=== PATIENT | male | born 1955 | race Caucasian/White ===

== ENCOUNTER 2018-09-11 16:59 | Emergency (ER) | payer MEDICARE, MEDICAID ==
[~2018-09-11] VITALS: Ht 190.5 cm; Wt 116.5 kg
[~2018-09-11 16:59] MED LIST: CYCL-120 PO
[2018-09-11 17:00] VITALS: BP 194/96
== END 2018-09-11 17:46 | disposition left against medical advice (07) ==
LOC: ER 17:00
DX: I10 Essential (primary) hypertension (principal); Z98.890 Other specified postprocedural states; Z59.0 Homelessness; Z91.048 Other nonmedicinal substance allergy status; Z79.899 Other long term (current) drug therapy
CPT/HCPCS: 99281

== ENCOUNTER 2019-02-05 22:26 | Emergency (ER) | payer MEDICARE, MEDICAID ==
[~2019-02-05] VITALS: Ht 190.5 cm; Wt 112.6 kg
[2019-02-05 22:30] VITALS: BP 149/122
--- NOTE | 2019-02-05 22:48 | NUR ---
PT SITTING UP IN BED, DRINKING WATER. TOLERATING PO.
[2019-02-05 23:15] LABS: URINE AMPHETAMINE SCREEN POSITIVE (Neg); URINE BARBITUATE SCREEN NEGATIVE (Neg); URINE BENZODIAZEPINES SCREEN NEGATIVE (Neg); URINE CANNABINOID SCREEN NEGATIVE (Neg); URINE COCAINE SCREEN NEGATIVE (Neg); URINE METHADONE SCREEN NEGATIVE (Neg); URINE OPIATE SCREEN POSITIVE (Neg); URINE PHENCYCLIDINE SCREEN NEGATIVE (Neg)
[2019-02-05 23:46] LABS: BASOPHILS # (AUTO) 0.1 X10'3 (0-0.2); EOSINOPHILS # (AUTO) 0.1 X10'3 (0-0.9); EOSINOPHILS % (AUTO) 1.7 % (0-6); HEMOGLOBIN 15.1 g/dl (14.0-17.9); LYMPHOCYTES # (AUTO) 1.4 X10'3 (1.1-4.8); LYMPHOCYTES % (AUTO) 20.9 % (21-51); MEAN CORPUSCULAR HEMOGLOBIN 31.3 PG (27.0-31.0); MEAN CORPUSCULAR HGB CONC 34.4 g/dL (33.0-36.5); MEAN CORPUSCULAR VOLUME 91.2 FL (78-98); MEAN PLATELET VOLUME 9.2 FL (7.4-10.4); MONOCYTES # (AUTO) 0.5 X10'3 (0-0.9); MONOCYTES % (AUTO) 7.3 % (2-12); NEUTROPHILS # (AUTO) 4.7 X10'3 (1.8-7.7); NEUTROPHILS % (AUTO) 69.1 % (42-75); PLATELET COUNT 235 X10'3 (140-440); RED BLOOD COUNT 4.82 X10'6 (4.70-6.10); WHITE BLOOD COUNT 6.8 X10'3 (4.5-11.0)
[2019-02-05 23:57] LABS: ALANINE AMINOTRANSFERASE 30 U/L (12-78); ALBUMIN 4.1 G/DL (3.4-5.0); ALBUMIN/GLOBULIN RATIO 1.2 (1.1-1.5); ALKALINE PHOSPHATASE 73 IU/L (46-116); ANION GAP 7 (8-16); ASPARTATE AMINO TRANSFERASE 20 U/L (10-37); BILIRUBIN,TOTAL 0.5 MG/DL (0.1-1.0); BLOOD UREA NITROGEN 9 MG/DL (7-18); BUN/CREATININE RATIO 9.7 (5.4-32.0); CALCIUM 8.9 MG/DL (8.5-10.1); CHLORIDE 100 MMOL/L (99-107); CREATININE 0.93 MG/DL (0.60-1.10); GLUCOSE 102 MG/DL (70-104); POTASSIUM 3.7 MMOL/L (3.5-5.1); SODIUM 139 MMOL/L (135-145); TOTAL CARBON DIOXIDE 31.9 MMOL/L (24-32); TOTAL PROTEIN 7.4 G/DL (6.4-8.2); eGFR 83 ML/MIN
[2019-02-06 00:05] LABS: ETHANOL < 0.010 GM/DL (0.0-0.010)
== END 2019-02-06 00:49 | disposition home or self-care (01) ==
LOC: ER 22:28
DX: F15.10 Other stimulant abuse, uncomplicated (principal); F41.9 Anxiety disorder, unspecified; I10 Essential (primary) hypertension; G89.29 Other chronic pain; Z59.0 Homelessness
CPT/HCPCS: 36415; 71045; 80053; 80305; 80320; 83880; 84484; 85025; 93005; 99284

== ENCOUNTER 2019-06-15 11:59 | Emergency (ER) | payer MEDICARE, MEDICAID ==
[~2019-06-15] VITALS: Ht 190.5 cm; Wt 108.2 kg
[2019-06-15 13:59] LABS: CLARITY,URINE CLEAR (Clear); COLOR,URINE STRAW (Yellow); GLUCOSE, URINE NEGATIVE (Neg); KETONES,URINE NEGATIVE (Neg); LEUKOCYTE ESTERASE ,URINE NEGATIVE (Neg); NITRITES, URINE NEGATIVE (Neg); OCCULT BLOOD,URINE MODERATE (Neg); PH,URINE 6.5 (4.8-8.0); PROTEIN,URINE NEGATIVE (Neg); UROBILINOGEN,URINE 0.2 E.U/dL (0.2-1.0)
[2019-06-15 14:01] LABS: UA COLLECTION TYPE STRAIGHT CATH
[2019-06-15 14:04] LABS: SQUAMOUS EPITHELIAL CELL,UR FEW /LPF (FEW)
[2019-06-15 14:05] LABS: BACTERIA,URINE FEW /HPF (Neg); RBC,URINE 0-2 /HPF (0-2); TRANSITIONAL EPI CELLS,URINE FEW /HPF; WBC,URINE 0-4 /HPF (0-4)
[2019-06-15 14:52] VITALS: BP 132/81
== END 2019-06-15 14:54 | disposition home or self-care (01) ==
LOC: ER 11:59
DX: T83.098A Other mechanical complication of other urinary catheter, initial encounter (principal); I10 Essential (primary) hypertension; G89.29 Other chronic pain; F15.90 Other stimulant use, unspecified, uncomplicated; Z91.013 Allergy to seafood; Z79.899 Other long term (current) drug therapy; Z59.0 Homelessness; Z98.890 Other specified postprocedural states; Y84.6 Urinary catheterization as the cause of abnormal reaction of the patient, or of later complication, without mention of misadventure at the time of the procedure; Y92.89 Other specified places as the place of occurrence of the external cause
CPT/HCPCS: 81001; 99284

== ENCOUNTER 2019-08-05 19:58 | Emergency (ER) | payer MEDICARE, MEDICAID ==
[~2019-08-05] VITALS: Ht 190.5 cm; Wt 109.1 kg
[2019-08-05] MEDS ORDERED: ibuprofen tablet 400 MG TABLET PO ONE (20:40)
[2019-08-05] MEDS ORDERED: IBUP-1984 PO (20:54)
[2019-08-05 21:03] VITALS: BP 151/85
== END 2019-08-05 21:06 | disposition home or self-care (01) ==
LOC: ER 19:59
DX: M25.511 Pain in right shoulder (principal); I10 Essential (primary) hypertension; G89.29 Other chronic pain; F15.90 Other stimulant use, unspecified, uncomplicated; Z59.0 Homelessness; Z98.890 Other specified postprocedural states
CPT/HCPCS: 73030; 99283

== ENCOUNTER 2019-10-01 10:02 | Emergency (ER) | payer MEDICARE, MEDICAID ==
[~2019-10-01] VITALS: Ht 190.5 cm; Wt 97.9 kg
[2019-10-01] MEDS ORDERED: ketorolac tromethamine 15mg/ml inj. IM ONE (10:55)
[2019-10-01] MEDS ORDERED: TRAM50TA2 PO (10:57)
[2019-10-01 11:11] VITALS: BP 159/109
== END 2019-10-01 11:20 | disposition home or self-care (01) ==
LOC: ER 10:03
DX: M54.5 Low back pain (principal); I10 Essential (primary) hypertension; G89.29 Other chronic pain; F15.90 Other stimulant use, unspecified, uncomplicated; Z59.0 Homelessness; Z98.890 Other specified postprocedural states
CPT/HCPCS: 96372; 99283; J1885

== ENCOUNTER 2019-12-20 14:51 | Emergency (ER) | payer MEDICARE, MEDICAID ==
[~2019-12-20] VITALS: Ht 190.5 cm; Wt 113.2 kg
[2019-12-20 14:54] VITALS: BP 146/105
== END 2019-12-20 15:24 | disposition home or self-care (01) ==
LOC: ER 14:52
DX: F15.10 Other stimulant abuse, uncomplicated (principal); R20.0 Anesthesia of skin; R20.2 Paresthesia of skin; I10 Essential (primary) hypertension; G89.29 Other chronic pain; Z98.890 Other specified postprocedural states; Z59.0 Homelessness; Z91.048 Other nonmedicinal substance allergy status; Z79.899 Other long term (current) drug therapy
CPT/HCPCS: 99283

== ENCOUNTER 2019-12-24 21:48 | Emergency (ER) | payer MEDICARE, MEDICAID ==
[~2019-12-24] VITALS: Ht 190.5 cm; Wt 113.0 kg
--- NOTE | 2019-12-24 22:15 | NUR ---
PATIENT SELF CATHETERIZED IN ORDER TO OBTAIN UA
[2019-12-24 22:51] LABS: CLARITY,URINE CLEAR (Clear); COLOR,URINE YELLOW (Yellow); GLUCOSE, URINE NEGATIVE (Neg); KETONES,URINE NEGATIVE (Neg); LEUKOCYTE ESTERASE ,URINE NEGATIVE (Neg); NITRITES, URINE NEGATIVE (Neg); OCCULT BLOOD,URINE NEGATIVE (Neg); PROTEIN,URINE NEGATIVE (Neg); UROBILINOGEN,URINE 0.2 E.U/dL (0.2-1.0)
[2019-12-24 22:58] LABS: UA COLLECTION TYPE STRAIGHT CATH
[2019-12-24 23:23] VITALS: BP 153/104
== END 2019-12-24 23:24 | disposition home or self-care (01) ==
LOC: ER 21:49
DX: R30.0 Dysuria (principal); I10 Essential (primary) hypertension; G89.29 Other chronic pain; F15.90 Other stimulant use, unspecified, uncomplicated; Z79.899 Other long term (current) drug therapy; R50.9 Fever, unspecified; M54.5 Low back pain; Z59.0 Homelessness; Z88.5 Allergy status to narcotic agent
CPT/HCPCS: 81003; 99283

== ENCOUNTER 2020-05-19 07:53 | Emergency (ER) | payer MEDICARE, MEDICAID ==
[~2020-05-19] VITALS: Ht 190.5 cm; Wt 120.5 kg
[2020-05-19 08:31] LABS: CLARITY,URINE CLEAR (Clear); COLOR,URINE YELLOW (Yellow); GLUCOSE, URINE NEGATIVE (Neg); KETONES,URINE NEGATIVE (Neg); LEUKOCYTE ESTERASE ,URINE NEGATIVE (Neg); NITRITES, URINE NEGATIVE (Neg); OCCULT BLOOD,URINE TRACE-INTACT (Neg); PH,URINE 5.5 (4.8-8.0); PROTEIN,URINE NEGATIVE (Neg); UROBILINOGEN,URINE 0.2 E.U/dL (0.2-1.0)
[2020-05-19 08:35] LABS: UA COLLECTION TYPE CLN CATCH MIDSTREAM
[2020-05-19 08:36] LABS: MUCUS STRANDS FEW /LPF (Neg); SQUAMOUS EPITHELIAL CELL,UR FEW /LPF (FEW)
[2020-05-19 08:37] LABS: BACTERIA,URINE FEW /HPF (Neg); HYALINE CASTS 0-3 /LPF (NEGATIVE); RBC,URINE 0-2 /HPF (0-2); WBC,URINE 0-4 /HPF (0-4)
[2020-05-19 08:43] LABS: URINE AMPHETAMINE SCREEN NEGATIVE (Neg); URINE BARBITUATE SCREEN NEGATIVE (Neg); URINE BENZODIAZEPINES SCREEN NEGATIVE (Neg); URINE CANNABINOID SCREEN NEGATIVE (Neg); URINE COCAINE SCREEN NEGATIVE (Neg); URINE METHADONE SCREEN NEGATIVE (Neg); URINE OPIATE SCREEN POSITIVE (Neg); URINE PHENCYCLIDINE SCREEN NEGATIVE (Neg)
[2020-05-19 08:59] VITALS: BP 167/94
== END 2020-05-19 09:02 | disposition home or self-care (01) ==
LOC: ER 07:53
DX: R50.9 Fever, unspecified (principal); I10 Essential (primary) hypertension; G89.29 Other chronic pain; Z98.890 Other specified postprocedural states; F15.90 Other stimulant use, unspecified, uncomplicated; Z59.0 Homelessness; Z88.8 Allergy status to other drugs, medicaments and biological substances; Z79.899 Other long term (current) drug therapy
CPT/HCPCS: 80305; 81001; 99283

== ENCOUNTER 2020-07-27 13:14 | Emergency (ER) | payer MEDICARE, MEDICAID ==
[~2020-07-27] VITALS: Ht 190.5 cm; Wt 122.7 kg
[2020-07-27 13:43] VITALS: BP 131/115
== END 2020-07-27 14:30 | disposition left against medical advice (07) ==
LOC: ER 13:14
DX: R05 Cough (principal); R51.9 Headache, unspecified; R53.83 Other fatigue; Z53.21 Procedure and treatment not carried out due to patient leaving prior to being seen by health care provider

== ENCOUNTER 2020-07-29 19:18 | Emergency (ER) | payer MEDICARE, MEDICAID ==
[~2020-07-29] VITALS: Ht 190.5 cm; Wt 120.5 kg
[2020-07-29] MEDS ORDERED: LIDOcaine 1% W/epiNEPHrine 1:200,000 10ml vial IJ ONE (19:35)
[2020-07-29] MEDS ORDERED: LIDOcaine 1% w/epiNEPHrine 1:200,000 30ml vial IJ ONE (19:45)
== END 2020-07-29 20:25 | disposition home or self-care (01) ==
LOC: ER 19:19
DX: S01.01XA Laceration without foreign body of scalp, initial encounter (principal); I10 Essential (primary) hypertension; G89.29 Other chronic pain; F15.90 Other stimulant use, unspecified, uncomplicated; Z59.0 Homelessness; Z98.890 Other specified postprocedural states; W22.03XA Walked into furniture, initial encounter; Y93.89 Activity, other specified; Y92.89 Other specified places as the place of occurrence of the external cause; Y99.9 Unspecified external cause status
CPT/HCPCS: 12001; 70450; 99284

== ENCOUNTER 2020-08-07 11:09 | Emergency (ER) | payer MEDICARE, MEDICAID ==
[~2020-08-07] VITALS: Ht 180.3 cm; Wt 100.0 kg
[2020-08-07 12:39] VITALS: BP 145/70
== END 2020-08-07 12:50 | disposition home or self-care (01) ==
LOC: ER 11:09
DX: S01.01XD Laceration without foreign body of scalp, subsequent encounter (principal); Z48.02 Encounter for removal of sutures; F15.90 Other stimulant use, unspecified, uncomplicated; Z91.041 Radiographic dye allergy status; Z91.013 Allergy to seafood; Z59.0 Homelessness; X58.XXXD Exposure to other specified factors, subsequent encounter
CPT/HCPCS: 99281

== ENCOUNTER 2020-08-24 17:39 | Emergency (ER) | payer MEDICARE, MEDICAID ==
[2020-08-25] MEDS ORDERED: NAPR-56 PO (10:42)
[2020-08-25] MEDS ORDERED: ACET-2119 PO (10:42)
[2020-08-25] MEDS ORDERED: CYCL-1 PO (10:42)
== END 2020-08-24 19:03 | disposition left against medical advice (07) ==
LOC: ER 17:39
DX: Z20.828 Contact with and (suspected) exposure to other viral communicable diseases (principal); Z53.21 Procedure and treatment not carried out due to patient leaving prior to being seen by health care provider

== ENCOUNTER 2020-08-25 07:52 | Emergency (ER) | payer MEDICARE, MEDICAID ==
[~2020-08-25] VITALS: Ht 190.5 cm; Wt 116.7 kg
[2020-08-25 09:03] VITALS: BP 173/112
--- NOTE | 2020-08-25 09:25 | NUR ---
PT SELF CATHS AND C/O POSSIBLE UTI SYMPTOMS WITH PRESSURE AND TIGHTENING. URINE SAMPLE COLLECTED AND SENT TO THE LAB
[2020-08-25 09:43] LABS: CLARITY,URINE CLEAR (Clear); COLOR,URINE STRAW (Yellow); GLUCOSE, URINE NEGATIVE (Neg); KETONES,URINE NEGATIVE (Neg); LEUKOCYTE ESTERASE ,URINE NEGATIVE (Neg); NITRITES, URINE NEGATIVE (Neg); OCCULT BLOOD,URINE NEGATIVE (Neg); PROTEIN,URINE NEGATIVE (Neg); UROBILINOGEN,URINE 0.2 E.U/dL (0.2-1.0)
[2020-08-25 09:44] LABS: UA COLLECTION TYPE STRAIGHT CATH
[2020-08-25] MEDS ORDERED: HYDROcodone/acetaminophen 10/325mg tab PO ONE (10:40)
[2020-08-25] MEDS ORDERED: naproxen 500mg tablet PO ONE (10:40)
[2020-08-25] MEDS ORDERED: cyclobenzaprine 10mg tablet PO ONE (10:40)
[2020-08-25] MEDS ORDERED: CYCL-1 PO (10:42)
[2020-08-25] MEDS ORDERED: ACET-2119 PO (10:42)
[2020-08-25] MEDS ORDERED: NAPR-56 PO (10:42)
== END 2020-08-25 10:59 | disposition home or self-care (01) ==
LOC: ER 07:53
DX: R51.9 Headache, unspecified (principal); M54.9 Dorsalgia, unspecified; G89.29 Other chronic pain; I10 Essential (primary) hypertension; F15.90 Other stimulant use, unspecified, uncomplicated; Z98.890 Other specified postprocedural states; Z59.0 Homelessness; Z91.041 Radiographic dye allergy status; Z91.013 Allergy to seafood; Z79.899 Other long term (current) drug therapy; Z86.19 Personal history of other infectious and parasitic diseases
CPT/HCPCS: 81003; 99283

== ENCOUNTER 2020-09-24 11:21 | Emergency (ER) | payer MEDICARE, MEDICAID ==
[~2020-09-24] VITALS: Ht 190.5 cm; Wt 120.5 kg
[~2020-09-24 11:21] MED LIST changes: +ACET-2119 PO; +CYCL-1 PO; +NAPR-56 PO
[2020-09-24 11:29] VITALS: BP 175/113
== END 2020-09-24 12:30 | disposition home or self-care (01) ==
LOC: ER 11:22
DX: Z04.1 Encounter for examination and observation following transport accident (principal); I10 Essential (primary) hypertension; G89.29 Other chronic pain; F15.90 Other stimulant use, unspecified, uncomplicated; Z98.890 Other specified postprocedural states; Z59.0 Homelessness; Z88.6 Allergy status to analgesic agent; Z79.899 Other long term (current) drug therapy; V89.2XXA Person injured in unspecified motor-vehicle accident, traffic, initial encounter; Y93.89 Activity, other specified; Y92.488 Other paved roadways as the place of occurrence of the external cause; Y99.8 Other external cause status
CPT/HCPCS: 99283

== ENCOUNTER 2020-11-17 16:54 | Emergency (ER) | payer MEDICARE, MEDICAID ==
[~2020-11-17] VITALS: Ht 190.5 cm; Wt 113.6 kg
[~2020-11-17 16:54] MED LIST changes: -ACET-2119 PO; -NAPR-56 PO
[2020-11-17 16:57] VITALS: BP 141/98
[2020-11-17] MEDS ORDERED: HYDR25CA PO (18:16)
== END 2020-11-17 18:28 | disposition home or self-care (01) ==
LOC: ER 16:55
DX: F41.9 Anxiety disorder, unspecified (principal); I10 Essential (primary) hypertension; G89.29 Other chronic pain; F15.90 Other stimulant use, unspecified, uncomplicated; Z91.041 Radiographic dye allergy status; Z91.013 Allergy to seafood; Z79.899 Other long term (current) drug therapy
CPT/HCPCS: 99283

== ENCOUNTER 2021-10-12 12:00 | Emergency (ER) | payer MEDICARE, MEDICAID ==
[~2021-10-12] VITALS: Ht 190.5 cm; Wt 113.0 kg
[~2021-10-12 12:00] MED LIST changes: +BACL10TA7 PO; -CYCL-1 PO; -CYCL-120 PO; +DIAZ-351 PO; +DIPH25TA62 PO; +FLO0.4C PO; +HYDR-3965 PO; +NAPR-996 PO; +RAMI10CA69 PO; +TEMA30CA PO
[2021-10-12 12:54] VITALS: BP 147/102
[2021-10-12] MEDS ORDERED: BENZ-38 PO (14:24)
== END 2021-10-12 14:40 | disposition home or self-care (01) ==
LOC: ER 12:01
DX: R05.9 Cough, unspecified (principal); R09.89 Other specified symptoms and signs involving the circulatory and respiratory systems; Z20.822 Contact with and (suspected) exposure to COVID-19; I10 Essential (primary) hypertension; G89.29 Other chronic pain; F15.90 Other stimulant use, unspecified, uncomplicated; Z98.890 Other specified postprocedural states; Z79.899 Other long term (current) drug therapy; Z88.6 Allergy status to analgesic agent
CPT/HCPCS: 71045; 87635; 99284; C9803

== ENCOUNTER 2022-05-25 08:05 | Emergency (ER) | payer MEDICARE, MEDICAID ==
[~2022-05-25] VITALS: Ht 190.5 cm; Wt 113.6 kg
[2022-05-25 08:42] LABS: CLARITY,URINE SLIGHTLY CLOUDY (Clear); COLOR,URINE YELLOW (Yellow); GLUCOSE, URINE NEGATIVE (Neg); KETONES,URINE NEGATIVE (Neg); LEUKOCYTE ESTERASE ,URINE MODERATE (Neg); NITRITES, URINE POSITIVE (Neg); OCCULT BLOOD,URINE TRACE-INTACT (Neg); PH,URINE 7.5 (4.8-8.0); PROTEIN,URINE NEGATIVE (Neg); UROBILINOGEN,URINE 0.2 E.U/dL (0.2-1.0)
[2022-05-25 08:45] LABS: UA COLLECTION TYPE STRAIGHT CATH
[2022-05-25 08:55] LABS: SQUAMOUS EPITHELIAL CELL,UR FEW /LPF (FEW)
[2022-05-25 08:57] LABS: BACTERIA,URINE 4+ /HPF (Neg); RBC,URINE 0-2 /HPF (0-2); WBC,URINE 30-50 /HPF (0-4)
[2022-05-25] MEDS ORDERED: CEPH-585 PO (09:24)
[2022-05-25] MEDS ORDERED: cephalexin 250mg capsule PO ONE (09:30)
[2022-05-25 09:59] VITALS: BP 149/105
--- NOTE | 2022-05-25 10:01 | NUR ---
Pt given and understands d/c istructions. Ambulatory with a limp.
== END 2022-05-25 10:04 | disposition home or self-care (01) ==
LOC: ER 08:05
DX: N39.0 Urinary tract infection, site not specified (principal); N31.9 Neuromuscular dysfunction of bladder, unspecified; I10 Essential (primary) hypertension; G89.29 Other chronic pain; F15.90 Other stimulant use, unspecified, uncomplicated; Z87.440 Personal history of urinary (tract) infections; Z98.890 Other specified postprocedural states; Z88.8 Allergy status to other drugs, medicaments and biological substances; Z79.2 Long term (current) use of antibiotics; Z79.899 Other long term (current) drug therapy
CPT/HCPCS: 81001; 87077; 87088; 87186; 99284

== ENCOUNTER 2022-07-12 17:07 | Emergency (ER) | payer MEDICARE, MEDICAID ==
[~2022-07-12] VITALS: Ht 190.5 cm; Wt 118.2 kg
[2022-07-12 17:24] VITALS: BP 158/112
[2022-07-12 17:51] LABS: BASOPHILS # (AUTO) 0.1 X10'3 (0-0.2); BASOPHILS % (AUTO) 1.2 % (0-1); EOSINOPHILS # (AUTO) 0.1 X10'3 (0-0.9); EOSINOPHILS % (AUTO) 1.3 % (0-6); HEMATOCRIT 44.1 % (42.0-52.0); HEMOGLOBIN 15.2 g/dl (14.0-17.9); LYMPHOCYTES # (AUTO) 1.8 X10'3 (1.1-4.8); MEAN CORPUSCULAR HEMOGLOBIN 30.2 PG (27.0-31.0); MEAN CORPUSCULAR HGB CONC 34.6 g/dL (33.0-36.5); MEAN CORPUSCULAR VOLUME 87.2 FL (78-98); MEAN PLATELET VOLUME 8.8 FL (7.4-10.4); MONOCYTES # (AUTO) 0.5 X10'3 (0-0.9); MONOCYTES % (AUTO) 5.7 % (2-12); NEUTROPHILS # (AUTO) 6.2 X10'3 (1.8-7.7); NEUTROPHILS % (AUTO) 70.8 % (42-75); PLATELET COUNT 240 X10'3 (140-440); RED BLOOD COUNT 5.05 X10'6 (4.70-6.10); RED CELL DISTRIBUTION WIDTH 13.3 % (11.5-14.5); WHITE BLOOD COUNT 8.7 X10'3 (4.5-11.0)
[2022-07-12 18:09] LABS: ALANINE AMINOTRANSFERASE 27 U/L (12-78); ALBUMIN 4.3 G/DL (3.4-5.0); ALBUMIN/GLOBULIN RATIO 1.2 (1.1-1.5); ANION GAP 8 (8-16); ASPARTATE AMINO TRANSFERASE 28 U/L (10-37); BILIRUBIN,TOTAL 0.7 MG/DL (0.1-1.0); BLOOD UREA NITROGEN 12 MG/DL (7-18); BUN/CREATININE RATIO 12.2 (5.4-32.0); CALCIUM 9.3 MG/DL (8.5-10.1); CHLORIDE 105 MMOL/L (99-107); CREATININE 0.98 MG/DL (0.60-1.10); GLUCOSE 90 MG/DL (70-104); POTASSIUM 3.8 MMOL/L (3.5-5.1); SODIUM 142 MMOL/L (135-145); TOTAL CARBON DIOXIDE 28.8 MMOL/L (24-32); eGFR 77 ML/MIN
[2022-07-12 18:10] LABS: ALKALINE PHOSPHATASE 93 IU/L (46-116)
== END 2022-07-12 18:58 | disposition home or self-care (01) ==
LOC: ER 17:07
DX: M25.562 Pain in left knee (principal); I10 Essential (primary) hypertension; G89.29 Other chronic pain; M54.50 Low back pain, unspecified; F15.20 Other stimulant dependence, uncomplicated; Z91.041 Radiographic dye allergy status
CPT/HCPCS: 36415; 80053; 85025; 99283

== ENCOUNTER 2022-11-18 18:46 | Emergency (ER) | payer MEDICARE, MEDICAID ==
[~2022-11-18] VITALS: Ht 190.5 cm; Wt 113.6 kg
[2022-11-18 18:56] VITALS: BP 152/100
[2022-11-18 19:44] LABS: CLARITY,URINE CLEAR (Clear); COLOR,URINE YELLOW (Yellow); GLUCOSE, URINE NEGATIVE (Neg); KETONES,URINE NEGATIVE (Neg); LEUKOCYTE ESTERASE ,URINE NEGATIVE (Neg); NITRITES, URINE NEGATIVE (Neg); OCCULT BLOOD,URINE TRACE-INTACT (Neg); PROTEIN,URINE NEGATIVE (Neg); UROBILINOGEN,URINE 0.2 E.U/dL (0.2-1.0)
[2022-11-18 19:51] LABS: UA COLLECTION TYPE CLN CATCH MIDSTREAM
[2022-11-18 19:58] LABS: BACTERIA,URINE FEW /HPF (Neg); WBC,URINE 0-4 /HPF (0-4)
[2022-11-18 19:59] LABS: SQUAMOUS EPITHELIAL CELL,UR NONE SEEN /LPF (FEW)
[2022-11-18] MEDS ORDERED: cyclobenzaprine 10mg tablet PO ONE (20:10)
[2022-11-18] MEDS ORDERED: ketorolac trometh inj. 60 MG/2 ML VIAL IM ONE (20:10)
[2022-11-18] MEDS ORDERED: CYCL-1 PO (20:13)
== END 2022-11-18 20:49 | disposition home or self-care (01) ==
LOC: ER 18:47
DX: R10.9 Unspecified abdominal pain (principal); I10 Essential (primary) hypertension; G89.29 Other chronic pain; M54.9 Dorsalgia, unspecified; Z87.81 Personal history of (healed) traumatic fracture; Z88.5 Allergy status to narcotic agent; Z79.899 Other long term (current) drug therapy
CPT/HCPCS: 81001; 96372; 99283; J1885

== ENCOUNTER 2023-02-08 05:47 | Emergency (ER) | payer MEDICARE, MEDICAID ==
[~2023-02-08] VITALS: Ht 190.5 cm; Wt 111.4 kg
[~2023-02-08 05:47] MED LIST changes: +CYCL-1 PO
[2023-02-08 06:01] VITALS: BP 133/91
[2023-02-08 06:58] LABS: CLARITY,URINE CLEAR (Clear); COLOR,URINE YELLOW (Yellow); GLUCOSE, URINE NEGATIVE (Neg); KETONES,URINE NEGATIVE (Neg); LEUKOCYTE ESTERASE ,URINE TRACE (Neg); NITRITES, URINE POSITIVE (Neg); OCCULT BLOOD,URINE NEGATIVE (Neg); PROTEIN,URINE NEGATIVE (Neg); UROBILINOGEN,URINE 0.2 E.U/dL (0.2-1.0)
[2023-02-08 07:00] LABS: UA COLLECTION TYPE STRAIGHT CATH
[2023-02-08 07:07] LABS: HYALINE CASTS 0-3 /LPF (NEGATIVE); MUCUS STRANDS FEW /LPF (Neg); SQUAMOUS EPITHELIAL CELL,UR FEW /LPF (FEW)
[2023-02-08 07:08] LABS: BACTERIA,URINE FEW /HPF (Neg); RBC,URINE 0-2 /HPF (0-2); TRANSITIONAL EPI CELLS,URINE FEW /HPF; WBC,URINE 0-4 /HPF (0-4)
[2023-02-08] MEDS ORDERED: CEPH-585 PO ×3 (07:13→07:24)
== END 2023-02-08 07:25 | disposition home or self-care (01) ==
LOC: ER 05:48
DX: N39.0 Urinary tract infection, site not specified (principal); I10 Essential (primary) hypertension; F15.20 Other stimulant dependence, uncomplicated; Z91.041 Radiographic dye allergy status; Z91.013 Allergy to seafood
CPT/HCPCS: 81001; 87088; 99283

== ENCOUNTER 2023-04-01 00:52 | Emergency (ER) | payer MEDICARE, MEDICAID ==
[~2023-04-01] VITALS: Ht 190.5 cm; Wt 98.0 kg
[~2023-04-01 00:52] MED LIST changes: +CEPH-585 PO
[2023-04-01 01:03] VITALS: BP 184/91; PULSE 78; RESP 18; TEMP 99.1; O2SAT 97
[2023-04-01 01:28] LABS: CLARITY,URINE CLEAR (Clear); COLOR,URINE YELLOW (Yellow); GLUCOSE, URINE NEGATIVE (Neg); KETONES,URINE NEGATIVE (Neg); LEUKOCYTE ESTERASE ,URINE NEGATIVE (Neg); NITRITES, URINE NEGATIVE (Neg); OCCULT BLOOD,URINE NEGATIVE (Neg); PROTEIN,URINE NEGATIVE (Neg); UROBILINOGEN,URINE 0.2 E.U/dL (0.2-1.0)
--- NOTE | 2023-04-01 01:33 | NUR ---
pt education given on self cathing. pt understood with return demo
[2023-04-01 01:38] LABS: UA COLLECTION TYPE OTHER
== END 2023-04-01 02:23 | disposition home or self-care (01) ==
LOC: ER 00:53
DX: N39.0 Urinary tract infection, site not specified (principal); I10 Essential (primary) hypertension; F15.90 Other stimulant use, unspecified, uncomplicated; G89.29 Other chronic pain; Z98.890 Other specified postprocedural states; Z88.6 Allergy status to analgesic agent; Z79.899 Other long term (current) drug therapy
CPT/HCPCS: 81003; 82948; 99283

== ENCOUNTER 2023-07-11 08:00 | Emergency (ER) | payer MEDICARE, MEDICAID ==
[~2023-07-11] VITALS: Ht 190.5 cm; Wt 109.5 kg
[2023-07-11 08:03] VITALS: BP 141/86; PULSE 62; TEMP 97; O2SAT 99
[2023-07-11 08:37] LABS: BILIRUBIN,URINE NEGATIVE (Neg); CLARITY,URINE CLEAR (Clear); COLOR,URINE YELLOW (Yellow); GLUCOSE, URINE NEGATIVE (Neg); KETONES,URINE NEGATIVE (Neg); LEUKOCYTE ESTERASE ,URINE NEGATIVE (Neg); NITRITES, URINE NEGATIVE (Neg); OCCULT BLOOD,URINE NEGATIVE (Neg); PROTEIN,URINE NEGATIVE (Neg); UROBILINOGEN,URINE 0.2 E.U/dL (0.2-1.0)
[2023-07-11 08:39] LABS: UA COLLECTION TYPE OTHER
[2023-07-11] MEDS ORDERED: phenazopyridine 100mg tablet PO ONE (09:00)
[2023-07-11] MEDS ORDERED: DOXYCYCLINE 100MG CAPSULE PO STA (09:37)
[2023-07-11 10:24] VITALS: RESP 18
== END 2023-07-11 10:29 | disposition home or self-care (01) ==
LOC: ER 08:00
DX: R30.0 Dysuria (principal); R39.89 Other symptoms and signs involving the genitourinary system; R61 Generalized hyperhidrosis; I10 Essential (primary) hypertension; G89.29 Other chronic pain; F15.90 Other stimulant use, unspecified, uncomplicated; Z87.81 Personal history of (healed) traumatic fracture; Z91.041 Radiographic dye allergy status; Z79.2 Long term (current) use of antibiotics; Z79.899 Other long term (current) drug therapy
CPT/HCPCS: 81003; 99283; C1758

== ENCOUNTER 2023-11-02 07:12 | Emergency (ER) | payer MEDICARE, MEDICAID ==
[~2023-11-02] VITALS: Ht 190.5 cm; Wt 113.5 kg
[2023-11-02 09:04] LABS: BILIRUBIN,URINE NEGATIVE (Neg); CLARITY,URINE CLEAR (Clear); COLOR,URINE YELLOW (Yellow); GLUCOSE, URINE NEGATIVE (Neg); KETONES,URINE NEGATIVE (Neg); LEUKOCYTE ESTERASE ,URINE SMALL (Neg); NITRITES, URINE NEGATIVE (Neg); OCCULT BLOOD,URINE NEGATIVE (Neg); PH,URINE 6.5 (4.8-8.0); PROTEIN,URINE NEGATIVE (Neg); UROBILINOGEN,URINE 0.2 E.U/dL (0.2-1.0)
[2023-11-02 09:14] LABS: UA COLLECTION TYPE STRAIGHT CATH
[2023-11-02 09:15] LABS: SQUAMOUS EPITHELIAL CELL,UR MODERATE /LPF (FEW)
[2023-11-02 09:17] LABS: AMORPHOUS PHOSPHATES 1+; BACTERIA,URINE FEW /HPF (Neg); RBC,URINE 0-2 /HPF (0-2)
[2023-11-02 09:20] LABS: ALBUMIN 3.9 G/DL (3.4-5.0); ANION GAP 12 (8-16); BLOOD UREA NITROGEN 17 MG/DL (7-18); BUN/CREATININE RATIO 13.4 (10.0-20.0); CALCIUM 8.7 MG/DL (8.5-10.1); CHLORIDE 99 MMOL/L (99-107); CREATININE 1.27 MG/DL (0.60-1.10); GLUCOSE 86 MG/DL (70-104); POTASSIUM 3.2 MMOL/L (3.5-5.1); SODIUM 142 MMOL/L (135-145); TOTAL CARBON DIOXIDE 31.3 MMOL/L (24-32); eCRCL 68 ML/MIN; eGFR 57 ML/MIN
[2023-11-02 09:25] LABS: BASOPHILS # (AUTO) 0.1 X10'3 (0-0.2); EOSINOPHILS # (AUTO) 0.3 X10'3 (0-0.9); EOSINOPHILS % (AUTO) 2.7 % (0-6); HEMATOCRIT 46.6 % (42.0-52.0); HEMOGLOBIN 15.7 g/dl (14.0-17.9); LYMPHOCYTES # (AUTO) 2.8 X10'3 (1.1-4.8); MEAN CORPUSCULAR HEMOGLOBIN 30.4 PG (27.0-31.0); MEAN CORPUSCULAR HGB CONC 33.6 g/dL (33.0-36.5); MEAN CORPUSCULAR VOLUME 90.3 FL (78-98); MEAN PLATELET VOLUME 10.7 FL (7.4-10.4); MONOCYTES # (AUTO) 0.7 X10'3 (0-0.9); MONOCYTES % (AUTO) 7.6 % (2-12); NEUTROPHILS # (AUTO) 5.4 X10'3 (1.8-7.7); NEUTROPHILS % (AUTO) 58.7 % (42-75); PLATELET COUNT 239 X10'3 (140-440); RED BLOOD COUNT 5.16 X10'6 (4.70-6.10); RED CELL DISTRIBUTION WIDTH 13.8 % (11.5-14.5); WHITE BLOOD COUNT 9.2 X10'3 (4.5-11.0)
[2023-11-02] MEDS ORDERED: CEPH250T PO (12:34)
[2023-11-02 12:45] VITALS: BP 113/86; PULSE 122; RESP 18; TEMP 97.6; O2SAT 97
== END 2023-11-02 12:48 | disposition home or self-care (01) ==
LOC: ER 07:12
DX: S16.1XXA Strain of muscle, fascia and tendon at neck level, initial encounter (principal); I10 Essential (primary) hypertension; F15.90 Other stimulant use, unspecified, uncomplicated; N39.0 Urinary tract infection, site not specified; Z91.041 Radiographic dye allergy status; Z91.013 Allergy to seafood; Z79.2 Long term (current) use of antibiotics; Z79.899 Other long term (current) drug therapy; X58.XXXA Exposure to other specified factors, initial encounter; Y93.89 Activity, other specified; Y92.89 Other specified places as the place of occurrence of the external cause; Y99.8 Other external cause status
CPT/HCPCS: 36415; 80048; 81001; 85025; 87088; 99283

== ENCOUNTER 2024-04-29 19:48 | Emergency (ER) | payer MEDICARE, MEDICAID ==
[~2024-04-29] VITALS: Ht 190.5 cm; Wt 110.9 kg
[~2024-04-29 19:48] MED LIST changes: -BACL10TA7 PO; -CEPH-585 PO; +CEPH250T PO; -NAPR-996 PO; -RAMI10CA69 PO; +RAMI10CA78 PO
[2024-04-29 19:52] VITALS: BP 125/81; PULSE 83; RESP 18; O2SAT 99
[2024-04-29] MEDS: TETanus/Pertussis (Acell)/Diphther VAC/PF (Tdap-Adult) 0.5ml syringe IMVAC ONE (20:22)
[2024-04-29 20:29] VITALS: TEMP 98.8
== END 2024-04-29 20:35 | disposition home or self-care (01) ==
LOC: ER 19:48
DX: S61.412A Laceration without foreign body of left hand, initial encounter (principal); I10 Essential (primary) hypertension; G89.29 Other chronic pain; M54.9 Dorsalgia, unspecified; F15.90 Other stimulant use, unspecified, uncomplicated; Z91.018 Allergy to other foods; Z79.2 Long term (current) use of antibiotics; Z79.899 Other long term (current) drug therapy; Z98.890 Other specified postprocedural states; Z60.2 Problems related to living alone; X58.XXXA Exposure to other specified factors, initial encounter; Y93.89 Activity, other specified; Y92.89 Other specified places as the place of occurrence of the external cause; Y99.8 Other external cause status
CPT/HCPCS: 12001; 90715; 99283; A6402; G0008; Z7610; 90471; A6449

== ENCOUNTER 2024-05-18 00:48 | Emergency (ER) | payer MEDICARE, MEDICAID ==
[~2024-05-18] VITALS: Ht 190.5 cm; Wt 108.0 kg
[2024-05-18] MEDS ORDERED: NIRM1TAB7 PO (02:11)
[2024-05-18 02:18] VITALS: BP 134/84; PULSE 70; RESP 16; TEMP 98.6; O2SAT 97
== END 2024-05-18 02:20 | disposition home or self-care (01) ==
LOC: ER 00:49
DX: U07.1 COVID-19 (principal); I10 Essential (primary) hypertension; G89.29 Other chronic pain; M54.9 Dorsalgia, unspecified; F15.90 Other stimulant use, unspecified, uncomplicated; Z91.041 Radiographic dye allergy status; Z88.8 Allergy status to other drugs, medicaments and biological substances; Z79.2 Long term (current) use of antibiotics; Z79.899 Other long term (current) drug therapy
CPT/HCPCS: 36415; 87811; 99283

== ENCOUNTER 2024-05-21 07:51 | Emergency (ER) | payer MEDICARE, MEDICAID ==
[~2024-05-21] VITALS: Ht 190.5 cm; Wt 110.3 kg
[~2024-05-21 07:51] MED LIST changes: +NIRM1TAB7 PO
[2024-05-21 07:56] VITALS: BP 131/95; PULSE 77; RESP 18; O2SAT 97
[2024-05-21 08:27] LABS: BILIRUBIN,URINE NEGATIVE (Neg); CLARITY,URINE CLEAR (Clear); COLOR,URINE YELLOW (Yellow); GLUCOSE, URINE NEGATIVE (Neg); KETONES,URINE NEGATIVE (Neg); LEUKOCYTE ESTERASE ,URINE TRACE (Neg); NITRITES, URINE NEGATIVE (Neg); OCCULT BLOOD,URINE NEGATIVE (Neg); PROTEIN,URINE NEGATIVE (Neg); UROBILINOGEN,URINE 0.2 E.U/dL (0.2-1.0)
[2024-05-21 08:40] LABS: UA COLLECTION TYPE OTHER
[2024-05-21 08:42] LABS: WBC,URINE 0-4 /HPF (0-4)
[2024-05-21 08:43] LABS: BACTERIA,URINE NONE SEEN /HPF (Neg); MUCUS STRANDS NONE SEEN /LPF (Neg); RBC,URINE NONE SEEN /HPF (0-2); SQUAMOUS EPITHELIAL CELL,UR NONE SEEN /LPF (FEW)
[2024-05-21] MEDS ORDERED: PRED10TA23 PO (09:14)
[2024-05-21 09:34] VITALS: TEMP 97.6
== END 2024-05-21 09:39 | disposition home or self-care (01) ==
LOC: ER 07:52
DX: G89.29 Other chronic pain (principal); M54.9 Dorsalgia, unspecified; R05.9 Cough, unspecified; F15.90 Other stimulant use, unspecified, uncomplicated; I10 Essential (primary) hypertension; Z98.890 Other specified postprocedural states; Z60.2 Problems related to living alone; Z91.018 Allergy to other foods; Z79.1 Long term (current) use of non-steroidal anti-inflammatories (NSAID); Z79.899 Other long term (current) drug therapy; Z79.52 Long term (current) use of systemic steroids
CPT/HCPCS: 81001; 87088; 99283

== ENCOUNTER 2024-08-12 06:45 | Emergency (ER) | payer MEDICARE, MEDICAID ==
[~2024-08-12] VITALS: Ht 190.5 cm; Wt 110.0 kg
[2024-08-12 07:51] VITALS: BP 121/94; PULSE 76; RESP 18; O2SAT 92
[2024-08-12 08:33] LABS: BASOPHILS # (AUTO) 0.1 X10'3 (0-0.2); BASOPHILS % (AUTO) 0.9 % (0-1); EOSINOPHILS # (AUTO) 0.2 X10'3 (0-0.9); EOSINOPHILS % (AUTO) 2.9 % (0-6); HEMATOCRIT 39.2 % (42.0-52.0); HEMOGLOBIN 13.4 g/dl (14.0-17.9); LYMPHOCYTES # (AUTO) 1.4 X10'3 (1.1-4.8); LYMPHOCYTES % (AUTO) 23.6 % (21-51); MEAN CORPUSCULAR HEMOGLOBIN 31.4 PG (27.0-31.0); MEAN CORPUSCULAR HGB CONC 34.3 g/dL (33.0-36.5); MEAN CORPUSCULAR VOLUME 91.6 FL (78-98); MEAN PLATELET VOLUME 9.1 FL (7.4-10.4); MONOCYTES # (AUTO) 0.4 X10'3 (0-0.9); MONOCYTES % (AUTO) 6.1 % (2-12); NEUTROPHILS % (AUTO) 66.5 % (42-75); PLATELET COUNT 225 X10'3 (140-440); RED BLOOD COUNT 4.28 X10'6 (4.70-6.10); RED CELL DISTRIBUTION WIDTH 14.2 % (11.5-14.5)
[2024-08-12 08:49] LABS: ALBUMIN 3.8 G/DL (3.4-5.0); ANION GAP 7 (8-16); BLOOD UREA NITROGEN 14 MG/DL (7-18); BUN/CREATININE RATIO 17.1 (10.0-20.0); CALCIUM 8.5 MG/DL (8.5-10.1); CHLORIDE 107 MMOL/L (99-107); CREATININE 0.82 MG/DL (0.60-1.10); GLUCOSE 101 MG/DL (70-104); MAGNESIUM 2.1 MG/DL (1.5-2.4); POTASSIUM 3.9 MMOL/L (3.5-5.1); SODIUM 142 MMOL/L (135-145); TOTAL CARBON DIOXIDE 27.6 MMOL/L (24-32); eCRCL 104 ML/MIN; eGFR > 90 ML/MIN
== END 2024-08-12 12:05 | disposition home or self-care (01) ==
LOC: ER 06:46
DX: R68.2 Dry mouth, unspecified (principal); I10 Essential (primary) hypertension; G89.29 Other chronic pain; M54.9 Dorsalgia, unspecified; F15.90 Other stimulant use, unspecified, uncomplicated; Z88.8 Allergy status to other drugs, medicaments and biological substances; Z79.899 Other long term (current) drug therapy; Z60.2 Problems related to living alone; Z98.890 Other specified postprocedural states
CPT/HCPCS: 36415; 71045; 80048; 83735; 84484; 85025; 93005; 99285

== ENCOUNTER 2024-09-29 07:21 | Emergency (ER) | payer MEDICARE, MEDICAID ==
[~2024-09-29] VITALS: Ht 190.5 cm; Wt 105.9 kg
[2024-09-29 08:05] LABS: BILIRUBIN,URINE NEGATIVE (Neg); CLARITY,URINE CLEAR (Clear); COLOR,URINE YELLOW (Yellow); GLUCOSE, URINE NEGATIVE (Neg); KETONES,URINE NEGATIVE (Neg); LEUKOCYTE ESTERASE ,URINE NEGATIVE (Neg); NITRITES, URINE NEGATIVE (Neg); OCCULT BLOOD,URINE LARGE (Neg); PH,URINE 7.5 (4.8-8.0); PROTEIN,URINE NEGATIVE (Neg); UROBILINOGEN,URINE 0.2 E.U/dL (0.2-1.0)
[2024-09-29 08:06] LABS: UA COLLECTION TYPE STRAIGHT CATH
[2024-09-29 08:14] LABS: BACTERIA,URINE NONE SEEN /HPF (Neg); RBC,URINE 20-50 /HPF (0-2); WBC,URINE 0-4 /HPF (0-4)
[2024-09-29 08:15] LABS: SQUAMOUS EPITHELIAL CELL,UR FEW /LPF (FEW)
[2024-09-29] MEDS ORDERED: LEVO-65 PO (09:16)
[2024-09-29 09:24] VITALS: BP 158/99; PULSE 84; RESP 16; TEMP 97.8; O2SAT 98
== END 2024-09-29 09:26 | disposition home or self-care (01) ==
LOC: ER 07:22
DX: R31.9 Hematuria, unspecified (principal); I10 Essential (primary) hypertension; G89.29 Other chronic pain; F15.90 Other stimulant use, unspecified, uncomplicated; Z91.041 Radiographic dye allergy status; Z79.2 Long term (current) use of antibiotics; Z79.899 Other long term (current) drug therapy
CPT/HCPCS: 81001; 99283

== ENCOUNTER 2024-12-03 01:06 | Emergency (ER) | payer MEDICARE, MEDICAID ==
[~2024-12-03] VITALS: Ht 190.5 cm; Wt 109.0 kg
[2024-12-03 01:16] VITALS: TEMP 97.9
[2024-12-03 02:12] VITALS: BP 148/88; PULSE 91; RESP 18; O2SAT 99
== END 2024-12-03 02:12 | disposition home or self-care (01) ==
LOC: ER 01:07
DX: R42 Dizziness and giddiness (principal); F15.90 Other stimulant use, unspecified, uncomplicated; I10 Essential (primary) hypertension; Z91.041 Radiographic dye allergy status; Z98.890 Other specified postprocedural states
CPT/HCPCS: 71045; 93005; 99283

== ENCOUNTER 2024-12-03 03:16 | Emergency (ER) | payer MEDICARE, MEDICAID ==
[~2024-12-03] VITALS: Ht 190.5 cm; Wt 83.2 kg
[2024-12-03 03:17] VITALS: BP 123/95; PULSE 116; RESP 15; TEMP 97.8; O2SAT 97
== END 2024-12-03 04:25 | disposition home or self-care (01) ==
LOC: ER 03:16
DX: F41.9 Anxiety disorder, unspecified (principal); I10 Essential (primary) hypertension; F15.90 Other stimulant use, unspecified, uncomplicated; Z91.041 Radiographic dye allergy status; Z88.8 Allergy status to other drugs, medicaments and biological substances; Z98.890 Other specified postprocedural states
CPT/HCPCS: 99283

== ENCOUNTER 2025-02-16 23:15 | Emergency (ER) | payer MEDICARE, MEDICAID ==
[~2025-02-16] VITALS: Ht 188 cm; Wt 69.8 kg
[~2025-02-16 23:15] MED LIST changes: -FLO0.4C PO; +TAMS-55 PO
[2025-02-16 23:23] VITALS: BP 156/58; PULSE 113; O2SAT 99
[2025-02-17 00:53] VITALS: RESP 18
[2025-02-17] MEDS: ketorolac trometh 30MG/ML vial 30 MG/ML VIAL IM ONE (00:53)
--- NOTE | 2025-02-17 01:07 | Physician Documentation ---
History of Present Illness ~ General Chief Complaint: Bite-insect Stated Complaint: ABDOMINAL PAIN,INSECT BITE Time Seen by MD: 00:25 Primary Medical Doctor: Dr Ileana Tijerina PCP, Dr Vineet Shields Urologist Source: patient Mode of Arrival: POV Exam Limitations: no limitations History of Present Illness Initial Comments Patient who denies any medical problems in and admits that he just did meth prior to arrival. He states that he has a bunch of parasites in his abdomen and it is making him feel nauseous. He states that sometimes he can see them crawling out. Medication Reconciliation Allergies: Coded Allergies: iodine (Verified Allergy, Intermediate, GOLDEN, 02/16/25) lactose (Verified Adverse Reaction, Unknown, 02/16/25) Uncoded Allergies: FISH (Allergy, Unknown, 03/02/16) Scheduled Cephalexin*Monohydrate* (Keflex*), 2 CAP PO TID Cyclobenzaprine* (Cyclobenzaprine*), 1 TAB PO Q8H Diphenhydramine HCl (Benadryl Allergy), 2 TAB PO HS, (Reported) Nirmatrelvir/Ritonavir (Paxlovid 150-100 mg Dose Pack), 1 TAB PO BID Ramipril (Ramipril), 1 CAP PO DAILY, (Reported) Tamsulosin Hcl* (Flomax*), 1 CAP PO BID, (Reported) Temazepam (Temazepam), 1 CAP PO HS, (Reported) Scheduled PRN Diazepam (Diazepam), 1 TAB PO BID PRN for anxiety, (Reported) Hydrocodone Bit/Acetaminophen 5/325 MG ([place] 5/325 MG), 1 TAB PO TID PRN for pain, (Reported) Past Medical History Past Medical History: No Pertinent History, Hypertension, Hepatitis C, *RENAL/*, UTI, Chronic Back Pain, Extremity Fracture Past Surgical History: orthopedic surgeries Other Past Surgical History: right leg, left shoulder Patient History: Patient reports no known family medical history. Alcohol Use: None Drug Use: methamphetamine Lives with: Alone Lives In: Home Occupation: employed Review of Systems All Other Systems at this time: Reviewed and Negative Physical Exam Physical Exam Vital Signs: Temperature: 97.6, Source: Temporal, Heart Rate: 113, Respiratory Rate: 18, BP: 156/58, Pulse Oximetry: 99, Weight: 69.800 Physical Exam General: Alert, well-appearing, well-nourished, no acute distress HEENT: Normocephalic, atraumatic, no visible or palpable masses or depression, extraocular movements intact, PERRLA, no scleral icterus, neck is supple and nontender, mucous membranes moist Heart: Regular rate and rhythm, Lungs: Clear , normal work of breathing Abdomen: Soft, nontender, Extremities: Full range of motion, no acute deformity, peripheral pulses intact, no cyanosis or edema Musculoskeletal: Normal gait, normal tone Neurologic: Cranial nerves 2-12 are intact, reflexes normal Psychiatric: Alert, normal mood and affect Skin: Good turgor, no rashes Progress Results/Orders Results/Orders Completed Orders - NAKITA SANCHES MD Ketorolac Trometh 30mg/Ml Vial (Toradol (02/17/25 00:35) Ondansetron Disint. Tablet (Zofran Odt T (02/17/25 01:10) Medications Received in ER Medications (Trade) Dose Ordered Sig/Dwain Route PRN Reason Start Time Stop Time Status Last Admin Dose Admin (Toradol inj. 30mg/ml) 30 mg ONCE ONCE IM 02/17/25 00:35 02/17/25 00:36 DC 02/17/25 00:53 30 MG (Zofran ODT tablet) 8 mg ONCE ONCE PO 02/17/25 01:10 02/17/25 01:11 DC 02/17/25 01:18 8 MG Vital Signs 02/16/25 02/17/25 02/17/25 23:23 00:53 01:46 Temp 97.6 97.6 Pulse 113 Resp 17 18 B/P (MAP) 156/58 Pulse Ox 99 Departure Impression: Primary Impression: Methamphetamine abuse Additional Impression Text Patient and who just use meth and reports that parasites are coming out of his skin and are in his stomach. He did have 1 episode of vomiting in the ER and states that he felt much better. After this he was given Zofran ODT. He had also been given a shot for Toradol. Discussed the risks of meth use. Discharged home in good condition. He is to follow up with his PCP or return if new or worsening symptoms prior to follow-up. Condition: Stable Discharge Instructions: Methamphetamines Use Disorder Additional Instructions: Follow-up with your primary care provider in the next 7-10 days. Return here if new or worsening symptoms. Referrals: NO PRIMARY CARE PROVIDER (PCP) Education Educated: Patient Educated regarding: diagnosis, treatment, prognosis, need for follow up Signature Scribe Signature: No scribe Attestation: No scribe NAKITA SANCHES MD Feb 17, 2025 01:07
[2025-02-17] MEDS: ondansetron 4mg rapidly disintigrating tab PO ONE (01:18)
[2025-02-17 01:46] VITALS: TEMP 97.6
== END 2025-02-17 01:50 | disposition home or self-care (01) ==
LOC: ER 23:16
DX: F15.10 Other stimulant abuse, uncomplicated (principal); R11.2 Nausea with vomiting, unspecified; I10 Essential (primary) hypertension; Z88.8 Allergy status to other drugs, medicaments and biological substances; Z91.041 Radiographic dye allergy status
CPT/HCPCS: 96372; 99283; J1885

== ENCOUNTER 2025-03-21 17:05 | Emergency (ER) | payer MEDICARE, MEDICAID ==
[~2025-03-21] VITALS: Ht 190.5 cm; Wt 78.6 kg
[2025-03-21 17:22] VITALS: BP 127/79; PULSE 120; RESP 18; O2SAT 97
--- NOTE | 2025-03-21 18:04 | Physician Documentation ---
History of Present Illness ~ Chief Complaint: Bite-insect Stated Complaint: "I HAVE PARASITES INSIDE OF ME" Time Seen by MD: 18:02 Primary Medical Doctor: Dr Ileana Tijerina PCP, Dr Vineet Shields Urologist HPI Patient presents to the emergency room for any other that has bugs and parasites all over him. He states the liver in his house and he sprays for them. He states that they are in his microwave again in his food. He has been seen here previously for this. Patient presents a bag of roast beef saying the flat eyes are in there Tetanus within 5 years?: Yes Medication Reconciliation Allergies: Coded Allergies: iodine (Verified Allergy, Intermediate, GOLDEN, 03/21/25) lactose (Verified Adverse Reaction, Unknown, 03/21/25) Uncoded Allergies: FISH (Allergy, Unknown, 03/02/16) Scheduled Cephalexin*Monohydrate* (Keflex*), 2 CAP PO TID Cyclobenzaprine* (Cyclobenzaprine*), 1 TAB PO Q8H Diphenhydramine HCl (Benadryl Allergy), 2 TAB PO HS, (Reported) Nirmatrelvir/Ritonavir (Paxlovid 150-100 mg Dose Pack), 1 TAB PO BID Ramipril (Ramipril), 1 CAP PO DAILY, (Reported) Tamsulosin Hcl* (Flomax*), 1 CAP PO BID, (Reported) Temazepam (Temazepam), 1 CAP PO HS, (Reported) Scheduled PRN Diazepam (Diazepam), 1 TAB PO BID PRN for anxiety, (Reported) Hydrocodone Bit/Acetaminophen 5/325 MG ([place] 5/325 MG), 1 TAB PO TID PRN for pain, (Reported) Past Medical History Past Medical History: No Pertinent History, Hypertension, Hepatitis C, *RENAL/*, UTI, Chronic Back Pain, Extremity Fracture Past Surgical History: orthopedic surgeries Other Past Surgical History: right leg, left shoulder Patient History: Patient reports no known family medical history. Alcohol Use: None Drug Use: methamphetamine Lives with: Alone Lives In: Home Occupation: employed Review of Systems ROS All review of systems negative except as per HPI Physical Exam Vital Signs: Temperature: 97.1, Source: Temporal, Heart Rate: 120, Respiratory Rate: 18, BP: 127/79, Pulse Oximetry: 97, Weight: 78.600 Physical Exam General: Patient is awake, alert, oriented x4 in no acute distress. Well kempt Head: Normocephalic and atraumatic. Eyes: Conjunctival normal. EOMI. PERRL. ENT: Mucous membranes moist. Neck: Supple, trachea is midline. Chest: Clear to auscultation bilaterally without rales, rhonchi, or wheezes. There is no accessory muscle use or retractions. Cardiac: RRR without murmurs, gallops, or rubs. Abd: Soft, nondistended, nontender, with normoactive bowel sounds. No guarding, rebound, or rigidity. Skin: No appreciable abnormality Progress Results/Orders Results/Orders Vital Signs 03/21/25 17:22 Temp 97.1 Pulse 120 Resp 18 B/P (MAP) 127/79 Pulse Ox 97 Medical Decision Making Findings Patient presents to the emergency room for evaluation of parasites. Patient is well-kempt without picking parker. I do not feel he is suffering from parasites. I do not feel emergent labs or imaging is necessary. I do not believe the patient is gravely disabled Departure Disposition: 01 HOME / SELF CARE / HOMELESS Impression: Primary Impression: Insect bites Condition: Stable Discharge Instructions: Insect Bite, Adult, [id number] Additional Instructions: The pill you had today should take care of the parasites in the next 1-2 days. Referrals: NO PRIMARY CARE PROVIDER (PCP) Education Educated: Patient Educated regarding: diagnosis, treatment, need for follow up Signature Scribe Signature: No scribe Attestation: The note accurately reflects work and decisions made by me.Nikos Ibanez MD 03/21/25 18:11 NIKOS IBANEZ MD Mar 21, 2025 18:04
[2025-03-21 18:31] VITALS: TEMP 97.1
== END 2025-03-21 18:32 | disposition home or self-care (01) ==
LOC: ER 17:06
DX: T14.8XXA Other injury of unspecified body region, initial encounter (principal); Z88.8 Allergy status to other drugs, medicaments and biological substances; W57.XXXA Bitten or stung by nonvenomous insect and other nonvenomous arthropods, initial encounter; Y93.89 Activity, other specified; Y92.89 Other specified places as the place of occurrence of the external cause; Y99.8 Other external cause status
CPT/HCPCS: 99283

== ENCOUNTER 2025-04-29 03:13 | Emergency (ER) | payer MEDICARE, MEDICAID ==
[~2025-04-29] VITALS: Ht 190.5 cm; Wt 105.1 kg
[2025-04-29 03:40] VITALS: BP 132/87; PULSE 71; RESP 16; TEMP 98.1; O2SAT 96
== END 2025-04-29 06:08 | disposition left against medical advice (07) ==
LOC: ER 03:14
DX: M54.50 Low back pain, unspecified (principal); Z91.041 Radiographic dye allergy status; Z88.8 Allergy status to other drugs, medicaments and biological substances; Z53.21 Procedure and treatment not carried out due to patient leaving prior to being seen by health care provider

== ENCOUNTER 2025-05-18 11:13 | Emergency (ER) | payer MEDICARE, MEDICAID ==
[~2025-05-18] VITALS: Ht 190.5 cm; Wt 102.0 kg
[2025-05-18 11:15] VITALS: TEMP 98.2
--- NOTE | 2025-05-18 11:47 | Physician Documentation ---
History of Present Illness ~ Chief Complaint: Leg Pain Stated Complaint: R LEG PAIN Time Seen by MD: 11:49 Primary Medical Doctor: Dr Ileana Tijerina PCP, Dr Vineet Shields Urologist HPI This is a 70-year-old male with a history of orthopedic surgery to his right lower extremity, patient presented by EMS due to concern for hearing a popping sound coming from the area of his orthopedic hardware, patient reports that after the orthopedic surgery he lost feeling to the area therefore reports no pain. Patient reports I know it is broken because I heard it popping and I did not try to walk on it. Per EMS report patient reported methamphetamine use prior to calling ambulance. Patient reports no other acute symptoms or concerns. Tetanus witin 5 years: Yes Medication Reconciliation Allergies: Coded Allergies: iodine (Verified Allergy, Intermediate, GOLDEN, 04/29/25) lactose (Verified Adverse Reaction, Unknown, 04/29/25) Uncoded Allergies: FISH (Allergy, Unknown, 03/02/16) Scheduled Cephalexin*Monohydrate* (Keflex*), 2 CAP PO TID Cyclobenzaprine* (Cyclobenzaprine*), 1 TAB PO Q8H Diphenhydramine HCl (Benadryl Allergy), 2 TAB PO HS, (Reported) Nirmatrelvir/Ritonavir (Paxlovid 150-100 mg Dose Pack), 1 TAB PO BID Ramipril (Ramipril), 1 CAP PO DAILY, (Reported) Tamsulosin Hcl* (Flomax*), 1 CAP PO BID, (Reported) Temazepam (Temazepam), 1 CAP PO HS, (Reported) Scheduled PRN Diazepam (Diazepam), 1 TAB PO BID PRN for anxiety, (Reported) Hydrocodone Bit/Acetaminophen 5/325 MG ([place] 5/325 MG), 1 TAB PO TID PRN for pain, (Reported) Past Medical History Past Medical History: No Pertinent History, Hypertension, Hepatitis C, *RENAL/*, UTI, Chronic Back Pain, Extremity Fracture Past Surgical History: orthopedic surgeries Other Past Surgical History: right leg, left shoulder Patient History: Patient reports no known family medical history. Alcohol Use: None Drug Use: methamphetamine Lives with: Alone Lives In: Home Occupation: employed Review of Systems ROS As stated above in the HPI, otherwise all systems are reviewed and negative. Physical Exam Vital Signs: Temperature: 98.2, Source: Temporal, Heart Rate: 122, Respiratory Rate: 16, BP: 150/92, Pulse Oximetry: 98, Weight: 102.000 Oxygen Flow Rate: 0 Physical Exam VITALS: Reviewed and as above. GENERAL: Alert, nontoxic appearing, no apparent distress. RESPIRATORY: No increased work of breathing, no respiratory distress, speaking in full clear sentences MUSCULOSKELETAL: No swelling to right leg as compared to left leg, no obvious deformity Progress Results/Orders Results/Orders Orders - SHIVA HUNTER [employer] Ortho Orders (05/18/25 12:39) Vital Signs 05/18/25 05/18/25 11:15 13:12 Temp 98.2 Pulse 122 110 Resp 16 18 B/P (MAP) 150/92 154/82 (106) Pulse Ox 98 98 O2 Flow Rate 0 0 EKG/XRAY/CT/US/VASC/MRI Bone/Soft Tissue X-Ray (Ext.) : Additional Comment Exam: TIB/FIB 2 VWS CLINICAL INDICATION: LEG PAIN TECHNIQUE: 4 radiographic views of the right tibia/fibula were obtained. Comparison: None FINDINGS/IMPRESSION: Intramedullary sharri and screw fixation of the tibial shaft . Postsurgical changes are visualized in the distal fibula. No acute fracture. Electronically Signed by:ANN MURCIA MD Date & Time: 05/18/251228 Dictated by: ANN MURCIA MD Dictation date and time: 05/18/25 1209 I have reviewed and agree with the radiology report. I have reviewed and interpreted the imaging as: No fracture or dislocation Medical Decision Making Findings MSE performed in triage and patient returned to ED lobby by nursing staff to await available ED room A 70-year-old male presented with concern for a popping sound that he heard come from his leg, patient reported no pain in the area due to nerve damage to the leg, physical exam was benign with no obvious deformities of the area other than postsurgical scarring to the skin, the leg was vascularly intact and x-ray of the area did not demonstrate evidence of fracture or dislocation. Patient does report methamphetamine intoxication which I suspect contributes to "popping sound". Patient is otherwise well-appearing plan to discharge on crutches with home care instructions for rest, ice, compression, elevation. Patient discharged with home care instructions, follow up instructions, and return to care precautions which he verbalized understanding of. General Diff Dx:Considerations: Include: Fracture, Laceration, Neurovascular injury, Sprain, Other (Methamphetamine intoxication, auditory hallucinations) Ankle Diff Dx:Considerations: Include: DJD, Gout Departure Time of Disposition: 12:40 Disposition: 01 HOME / SELF CARE / HOMELESS Impression: Primary Impression: Leg pain Qualified Codes: M79.604 - Pain in right leg Condition: Improved Discharge Instructions: RICE Therapy for Routine Care of Injuries, [id number] Additional Instructions: Please use the crutches as needed to rest your leg, you may bear weight on it as tolerated, follow up with your orthopedist as needed. Please follow up with your primary care provider in the next few days. Please return to the emergency department for any new or worsening concerning symptoms. Referrals: NO PRIMARY CARE PROVIDER (PCP) Education Educated: Patient Educated regarding: diagnosis, treatment, prognosis, need for follow up Signature Scribe Signature: No scribe Attestation: The note accurately reflects work and decisions made by me.MARIANELA Bar 05/18/25 21:23 SHIVA HUNTER May 18, 2025 11:47
--- NOTE | 2025-05-18 12:32 | RADIOLOGY REPORT ---
CLINICAL INDICATION: LEG PAIN TECHNIQUE: 4 radiographic views of the right tibia/fibula were obtained. Comparison: None FINDINGS/IMPRESSION: Intramedullary sharri and screw fixation of the tibial shaft . Postsurgical changes are visualized in the distal fibula. No acute fracture.
[2025-05-18 13:12] VITALS: BP 154/82; PULSE 110; RESP 18; O2SAT 98
== END 2025-05-18 13:13 | disposition home or self-care (01) ==
LOC: ER 11:13
DX: M79.604 Pain in right leg (principal); F15.90 Other stimulant use, unspecified, uncomplicated; Z88.8 Allergy status to other drugs, medicaments and biological substances
CPT/HCPCS: 73590; 99283

== ENCOUNTER 2025-06-11 15:01 | Emergency (ER) | payer MEDICARE, MEDICAID ==
[~2025-06-11] VITALS: Ht 190.5 cm; Wt 104.4 kg
[2025-06-11 15:04] VITALS: BP 149/90; PULSE 77; RESP 16; TEMP 98.7; O2SAT 99
[2025-06-11 16:17] LABS: LEUKOCYTE ESTERASE ,URINE NEGATIVE (Neg); NITRITES, URINE NEGATIVE (Neg); OCCULT BLOOD,URINE NEGATIVE (Neg)
[2025-06-11 16:25] LABS: UA COLLECTION TYPE NON-SPECIFIED
--- NOTE | 2025-06-11 16:40 | Physician Documentation ---
History of Present Illness ~ Chief Complaint: Urinary Symptoms Stated Complaint: URINARY SYMPTOMS Time Seen by MD: 15:32 Primary Medical Doctor: Dr Ileana Tijerina PCP, Dr Vineet Shields Urologist HPI Patient reports having several days of dark urine which has become cloudy. He denies any fevers abdominal pain flank pain. Denies having any history of urinary tract infections. Said his urine seemed dark to him. Also reports having ongoing flu symptoms. Medication Reconciliation Allergies: Coded Allergies: iodine (Verified Allergy, Intermediate, GOLDEN, 06/11/25) lactose (Verified Adverse Reaction, Unknown, 06/11/25) Uncoded Allergies: FISH (Allergy, Unknown, 03/02/16) Scheduled Cephalexin*Monohydrate* (Keflex*), 2 CAP PO TID Cyclobenzaprine* (Cyclobenzaprine*), 1 TAB PO Q8H Diphenhydramine HCl (Benadryl Allergy), 2 TAB PO HS, (Reported) Nirmatrelvir/Ritonavir (Paxlovid 150-100 mg Dose Pack), 1 TAB PO BID Ramipril (Ramipril), 1 CAP PO DAILY, (Reported) Tamsulosin Hcl* (Flomax*), 1 CAP PO BID, (Reported) Temazepam (Temazepam), 1 CAP PO HS, (Reported) Scheduled PRN Diazepam (Diazepam), 1 TAB PO BID PRN for anxiety, (Reported) Hydrocodone Bit/Acetaminophen 5/325 MG ([place] 5/325 MG), 1 TAB PO TID PRN for pain, (Reported) Past Medical History Past Medical History: No Pertinent History, Hypertension, Hepatitis C, *RENAL/*, UTI, Chronic Back Pain, Extremity Fracture Past Surgical History: orthopedic surgeries Other Past Surgical History: right leg, left shoulder Patient History: Patient reports no known family medical history. Alcohol Use: None Drug Use: methamphetamine Lives with: Alone Lives In: Home Occupation: employed Review of Systems All Other Systems at this time: Reviewed and Negative ROS As stated above in the HPI, otherwise all systems are reviewed and negative. Physical Exam Vital Signs: Temperature: 98.7, Source: Temporal, Heart Rate: 77, Respiratory Rate: 16, BP: 149/90, Pulse Oximetry: 99, Weight: 104.400 Oxygen Flow Rate: 0 Physical Exam General: Alert, no apparent distress. Respiratory: Lungs clear, no respiratory distress. Cardiovascular: Regular rate and rhythm, no murmurs. Gastrointestinal: Soft, nontender, nondistended. Bowels sounds present. Neurologic: Oriented x4. Psychiatric: Normal mood and affect. Skin: Normal color, warm and dry. No edema, no ecchymosis. Progress Results/Orders Results/Orders Vital Signs 06/11/25 15:04 Temp 98.7 Pulse 77 Resp 16 B/P (MAP) 149/90 Pulse Ox 99 O2 Flow Rate 0 Laboratory Tests Test 06/11/25 16:05 Urine Specimen Description Non-specified Urine Color Yellow Urine Clarity Clear Urine pH 6.0 Urine Specific [place] 1.015 Urine Protein Negative Urine Glucose (UA) Negative Urine Ketones Negative Urine Occult Blood Negative Urine Nitrite Negative Urine Bilirubin Negative Urine Urobilinogen 0.2 Urine Leukocyte Esterase Negative Urine Culture Indicated Not ind Volume Urine Centrifuged 10 ml Urine Comment Medical Decision Making Findings Urinalysis was unremarkable. Patient does not present acutely ill outside of typical flu symptoms. Vitals are reassuring as was his presentation. Urinary Diff Dx:Considerations: Include: AAA, Aortic dissection, Appendicitis, Appendicitis train, Bowel obstruction, Bladder outlet obstruc., Cholelithiasis, Choleangitis, Cholecystitis, DJD, Epididymitis, Hepatitis, HNP, Impaction, Musculoskeletal pain, Pancreatitis, Postoperative Comp., Prostatitis, Pyelonephritis, Renal failure, Renal infarction, Strain, Urolithiasis, Urinary Obstruction, Urethritis, Urinary retention, UTI, Other Departure Disposition: HOME / SELF CARE / HOMELESS Impression: Primary Impression: Respiratory virus not isolated Condition: Stable Discharge Instructions: Upper Respiratory Infection, Adult, [id number] Additional Instructions: Make sure to maintain adequate hydration. Your urinalysis came back negative for any signs of blood or urine nor did it of appear to be concentrated indicating dehydration Referrals: NO PRIMARY CARE PROVIDER (PCP) Education Educated: Patient Educated regarding: diagnosis Signature Scribe Signature: f Attestation: Scribed for Kacy Obrien [employer] by Kacy Stubbs NP . 06/11/25 16:34 KACY OBRIEN NP Jun 11, 2025 16:40
== END 2025-06-11 17:06 | disposition home or self-care (01) ==
LOC: ER 15:01
DX: J11.1 Influenza due to unidentified influenza virus with other respiratory manifestations (principal); F15.90 Other stimulant use, unspecified, uncomplicated; G89.29 Other chronic pain; I10 Essential (primary) hypertension; Z88.8 Allergy status to other drugs, medicaments and biological substances; Z79.899 Other long term (current) drug therapy; Z98.890 Other specified postprocedural states; Z60.2 Problems related to living alone
CPT/HCPCS: 81003; 99283